=== PATIENT | male | born 1980 | race Caucasian/White ===

== ENCOUNTER 2024-11-29 12:03 | Outpatient (REF) | payer OTHER, SELFPAY | END 2024-11-29 12:04 | disposition home or self-care (01) | LOC: HO.HOSX 12:03 | PROVIDERS: Visit Provider Orthopaedic Surgery | DX: Z13.89 Encounter for screening for other disorder (principal) ==

== ENCOUNTER 2025-01-03 08:35 | Outpatient (REF) | payer OTHER, SELFPAY ==
--- OUTSIDE RECORDS SUMMARY | 2025-01-03 13:54 | XMS_ITS | Clinical Summary ---
Author Organization [employer] & [facility] Address [address] [place] [address] Care Team Providers Care Trauma Coordinator Name Role Phone Pcp, No Primary Care Provider [phone] Allergies No known active allergies Medications lisinopril (PRINIVIL,ZESTR IL) 10 MG tablet TAKE 1 TABLET BY MOUTH EVERY DAY 0 06/04/2018 Active omeprazole (PriLOSEC) 20 MG capsule TAKE 1 CAPSULE BY MOUTH EVERY DAY 2 06/04/2018 Active Social History Tobacco Use Types Packs/Day Years Used Date Smoking Tobacco: Former Smokeless Tobacco: Never Sex and Gender Information Value Date Recorded Sex Assigned at Not on file Legal Sex Male 10:37 AM EDT Gender Identity Not on file Sexual Orientation Not on file Last Filed Vital Signs Vital Sign Reading Time Taken Comments Blood Pressure 122/64 08/27/2018 10:47 AM EDT Pulse 86 08/27/2018 10:47 AM EDT Temperature 36.9 C (98.4 F) 08/27/2018 10:47 AM EDT Respiratory Rate 14 08/27/2018 10:47 AM EDT Oxygen Saturation 97% 08/27/2018 10:47 AM EDT Inhaled Oxygen Concentration - - Weight 107 kg (235 lb) 08/27/2018 10:47 AM EDT Height 188 cm (6' 2 ) 08/27/2018 10:47 AM EDT Body Mass Index 30.17 08/27/2018 10:47 AM EDT Plan of Treatment Not on file Medical Devices Not on file Insurance [employer] Care Teams Trauma Coordinator Relationship Specialty Start Date End Date Pcp, No PCP - General Family Medicine 08/27/18
--- OUTSIDE RECORDS SUMMARY | 2025-01-03 13:54 | XMS_ITS | Clinical Summary ---
Author Organization [place] [id number] [address] [facility] Address [address] [facility] [address] Phone Care Team Providers Care Senior Qualitative Researcher Name Role Phone David Swan DO Primary Care Provider Medications hydroCHLOROthia zide 12.5 mg tablet take 1 tablet by mouth every day in the morning for 90 days 05/04/2024 Active ibuprofen (ADVIL,MOTRIN) 200 mg tablet Take 2 tablets (400 mg total) by mouth. 04/11/2014 Active lisinopriL (PRINIVIL,ZESTR IL) 10 mg tablet Take 1 tablet (10 mg total) by mouth. 06/04/2018 Active omeprazole (PriLOSEC) [address] capsule TAKE 1 CAPSULE BY MOUTH EVERY DAY 30 MINUTES BEFORE MORNING MEAL 06/04/2018 Active oxyCODONE (ROXICODONE) 5 mg immediate release tablet Take 1 tab every 4 hours as needed for pain 06/11/2021 Active pantoprazole (PROTONIX) 40 mg EC tablet TAKE 1 TABLET BY MOUTH EVERY DAY 1/2 TO 1 HOUR BEFORE MORNING MEAL 90 07/01/2024 Active Active Problems Problem Noted Date Diagnosed Date Alcohol dependence in remission (CMS/HCC V24, CM S/HCC V28) 12/09/2024 Alcohol abuse 12/09/2024 Lumbar degenerative disc disease 02/27/2023 Overview (12/09/2024): Last Assessment & Plan: Mr. Davidson is well-known to me from a right L4-5 microdiscectomy on 02/02/2020 after which he had a prolonged postoperative course with physical therapy and remained out of work due to incapacitating lower back pain and radiculitis, presumably from L4-5, L5-S1 degenerative disc disease. We elected not to proceed with further surgery at that time and he has managed the symptoms with daily stretching, activity modification and pwiz-jzz-gczzsok medication. He was doing reasonably well until 5 or 6 weeks ago when he had a sudden major pain in my low back and since then, has struggled daily. He describes stiffness when trying to stand up from a seated position with pain in the lower back, over to the right hip and groin then down the lateral thigh, posterolateral calf and into his foot. The foot and toes can go numb and it often feels as if his right foot is swollen though it is not visibly so. He has been taking Tylenol only. Of note, he is had a recent weight loss after a bout of pancreatitis followed by diverticulitis and cannot take NSAIDs. On exam, seated SLR is positive on the right at 75 degrees, strength 5/5, sensation to light touch intact, gait is steady. Given his history, I believe he is had a flareup of lower back pain from DDD with right lower extremity radiculitis. I cannot treat him with NSAIDs and would prefer to know exactly what were dealing with before suggesting anything else like a lumbar SHAINA. Going to refer him for a new lumbar spine MRI with and without gadolinium to reassess the situation. Surgical History Surgery Date Site/Laterality Comments BACK SURGERY 02/02/2020 PROCEDURE: HISTORICAL BACK SURGERY; COMMENT: Rt L5-S1 MLD COLONOSCOPY PROCEDURE: HISTORICAL COLONOSCOPY Medical History Medical History Date Comments Fatty liver DX:Fatty liver Diverticulosis DX:Diverticulosi s Gastritis DX:Gastritis Hemorrhoids DX:Hemorrhoids Fatty liver DX:Fatty liver Social History Tobacco Use Types Packs/Day Years Used Date Smoking Tobacco: Never Smokeless Tobacco: Never Sex and Gender Information Value Date Recorded Sex Assigned at Not on file Legal Sex Male 9:18 PM EST Gender Identity Not on file Sexual Orientation Not on file Obstetrics History Last Filed Vital Signs Vital Sign Reading Time Taken Comments Blood Pressure 132/76 07/14/2023 2:29 PM EDT Pulse 96 07/14/2023 2:29 PM EDT Temperature - - Respiratory Rate - - Oxygen Saturation - - Inhaled Oxygen Concentration - - Weight 108 kg (238 lb 12.8 oz) 07/14/2023 2:29 P M EDT Height 188 cm (6' 2 ) 07/14/2023 2:29 PM EDT Body Mass Index 30.66 07/14/2023 2:29 PM EDT Plan of Treatment Upcoming Encounters Date Type Department Care Team ([facility] st Contact Info) Description 07/06/2025 1:40 PM EDT Office Visit Gastroenterology - [address] [facility] [address] [place] [id number] Negra Hall PA [address] [facility] [address] [place] [address] Health Maintenance Due Date Last Done Comments Hepatitis A Vaccines (1 of 2 - Risk 2-dose series) 2000 Hepatitis B Vaccines (1 of 3 - 19+ 3-dose series) 2000 Pneumococcal Vaccine: Pediat rics (0 to 5 Years) and At-Risk Patients (6 to 49 Years) (1 of 2 - PCV) 2000 HPV Vaccines (1 - 3-dose SCD M series) 2008 HIV Screening 03/26/2019 Hepatitis C Screening 03/26/2019 Social Influencers of Health Screening 03/26/2019 Depression Screening 02/24/2024 COVID-19 Vaccine (1 - 2023-2 5 season) 2024 Influenza Vaccine (#1) 2024 DTaP,Tdap,and Td Vaccines (2 - Td or Tdap) 07/13/2028 07/13/2018 Cholesterol Screening (Lipid Panel) 07/08/2029 07/08/2024 RSV Immunization Adult Patie nts (1 - 1-dose 75+ series) 2056 HIB Vaccines Aged Out No longer eligi ble based on patient's age to complete this topic IPV Vaccines Aged Out No longer eligi ble based on patient's age to complete this topic MMR Vaccines Aged Out No longer eligi ble based on patient's age to complete this topic Meningococcal ACWY Vaccine Aged Out N o longer eligible based on patient's age to complete this topic Meningococcal B Vaccine Aged Out No l onger eligible based on patient's age to complete this topic RSV Immunization Patients Un ángela 20 months Aged Out No longer eligible b ased on patient's age to complete this topic Varicella Vaccines Aged Out No longer eligible based on patient's age to complete this topic Procedures Procedure Name Priority Date/Time Associated Diagnosis Comments LIPID PANEL WITH REFLEX TO DIRECT LDL Routine 07/08/2024 2:18 PM EDT Routine general medical examination at a health care facility HTN (hypertension) Screening for thyroid disorder Screening for ischemic heart disease GERD (gastroesophageal reflux disease) Gastritis Knee pain from Last 3 Months or Most Recently Relevant to Health Maintenance Results * (ABNORMAL) Lipid panel with reflex to direct LDL (07/08/2024 2:18 PM EDT) Cholesterol 180 0 - 200 mg/dL LAB CHEMISTRY METHOD 07/08/2024 8:22 PM EDT [facility] Triglycerides 55 0 - 150 mg/dL LAB CHEMISTRY METHOD 07/08/2024 8:22 PM EDT [facility] HDL 50 >=40 mg/dL LAB CHEMISTRY METHOD 07/08/2024 8:22 PM EDT [facility] LDL Calculated 119(H) 0 - 100 mg/dL LAB CHEMISTRY METHOD 07/08/2024 8:22 PM EDT [facility] VLDL Cholesterol Onesimo 11 mg/dL LAB CHEMISTRY METHOD 07/08/2024 8:22 PM EDT [facility] Non HDL Chol. (LDL+VLDL) 130 <145 mg/dL LAB CHEMISTRY METHOD 07/08/2024 8:22 PM EDT [facility] Chol/HDL Ratio 3.6 0.0 - 4.4 LAB CHEMISTRY METHOD 07/08/2024 8:22 PM EDT [facility] Blood Venous blood specimen / Unknown Venipuncture / Unknown 07/08/2024 2:18 PM EDT 07/08/2024 2:18 PM EDT us Christianson Wiggins [employer] LAB BLOOD ORDERABLES Final Resul t [facility] [address] [place] [address], from Last 3 Months or Most Recently Relevant to Health Maintenance Insurance [employer] Care Teams Senior Qualitative Researcher Relationship Specialty Start Date End Date David Swan DO [address] [place] [phone] PCP - General Internal Medicine 06/13/19
== END 2025-01-03 08:36 | disposition home or self-care (01) ==
LOC: HO.HOSX 08:35
PROVIDERS: Visit Provider Orthopaedic Surgery
DX: Z13.89 Encounter for screening for other disorder (principal)